=== PATIENT | male | born 1965 | race Native Hawaiian/Other Pacific Islander ===

== ENCOUNTER 2019-02-22 19:34 | Inpatient (IN) | payer OTHER ==
--- NOTE | 2019-02-22 20:50 | Event Note ---
ED Screening Note Date of service: 02/22/19 Time: 20:46 ED Screening Note: This is a 53 y.o. M. that presents to the ER with global headache and left sided jaw pain for 3 days. Patient completed antibiotics prescribed for otitis media of right ear. This initial assessment/diagnostic orders/clinical plan/treatment(s) is/are subject to change based on patients health status, clinical progression and re- assessment by fellow clinical providers in the ED. Further treatment and workup at subsequent clinical providers discretion. Patient/guardian urged not to elope from the ED as their condition may be serious if not clinically assessed and managed. Initial orders include: CT of head
--- NOTE | 2019-02-22 21:42 | Cat Scan Report ---
CT head without contrast HISTORY: migraine. TECHNIQUE: Axial imaging performed from the skull apex through the skull base without the use of con trast. All CT scans at this location are performed using CT dose reduction for ALARA by means of aut omated exposure control. COMPARISON: CT head from 12/23/2012 FINDINGS: Parenchyma: No acute intracranial hemorrhage or parenchymal abnormality. Ventricles: There is mild diffuse brain atrophy with commensurate ventricular enlargement. Soft tissues: Soft tissues including the orbits appear normal. Bones: No acute osseous abnormality. Sinuses: Sinuses and mastoid air cells are clear. IMPRESSION: No acute abnormality. Signer Name: Aris Garcia MD Signed: 02/22/2019 9:38 PM Workstation Name: [id number]
--- NOTE | 2019-02-23 00:59 | Emergency Department Report ---
ED Headache HPI - General Chief Complaint: Headache Stated Complaint: HEADACHE, LEG WEAKNESS Time Seen by Provider: 02/22/19 20:46 Source: patient - History of Present Illness Head Injury Location: global Recent Head Trauma: occasional headaches Associated Symptoms: fatigue, vision changes, weakness (post weakness to the left upper extremity. Left-sided facial weakness, blurred vision and dizziness associated with the episode has been off and on for the last 3 days) Allergies/Adverse Reactions: Allergies No Known Allergies Allergy (Unverified 02/22/19 20:50) ED Review of Systems ROS: Stated complaint: HEADACHE, LEG WEAKNESS Other details as noted in HPI Comment: All other systems reviewed and negative ED Past Medical Hx - Past Medical History Previous Medical History?: Yes Additional medical history: Herpes, - Surgical History Past Surgical History?: Yes Hx Cholecystectomy: Yes - Social History Smoking Status: Never Smoker Substance Use Type: None ED Physical Exam - General Limitations: No Limitations General appearance: alert, in no apparent distress - Head Head exam: Present: atraumatic, normocephalic - Eye Eye exam: Present: normal appearance, PERRL, EOMI Pupils: Present: normal accommodation - ENT ENT exam: Present: normal exam, normal orophraynx, mucous membranes moist, TM's normal bilaterally - Neck Neck exam: Present: normal inspection, full ROM - Respiratory Respiratory exam: Present: normal lung sounds bilaterally. Absent: respiratory distress, wheezes, rales, chest wall tenderness, accessory muscle use - Cardiovascular Cardiovascular Exam: Present: regular rate, normal rhythm. Absent: systolic murmur, diastolic murmur, rubs, gallop - GI/Abdominal GI/Abdominal exam: Present: soft, normal bowel sounds. Absent: distended, tenderness, guarding, hyperactive bowel sounds, hypoactive bowel sounds, organomegaly - Rectal Rectal exam: Present: deferred - Extremities Exam Extremities exam: Present: normal inspection, full ROM, normal capillary refill. Absent: tenderness, pedal edema, calf tenderness - Back Exam Back exam: Present: normal inspection, full ROM. Absent: CVA tenderness (R), CVA tenderness (L) - Neurological Exam Neurological exam: Present: alert, oriented X3, CN II-XII intact - Psychiatric Psychiatric exam: Present: normal affect, normal mood - Skin Skin exam: Present: warm, dry, intact, normal color. Absent: rash ED Course Vital Signs 02/22/19 20:46 Temperature 98.3 F Pulse Rate 69 Respiratory 18 Rate Blood Pressure 112/55 O2 Sat by Pulse 97 Oximetry - Consultations Consultation #1: 02/23/19 01:[address] Hernandez who agrees with the need for admission. She had [id number] with the patient see her note for more details Consultation #2: 02/23/19 03:12 Case discussed with tele-neurology and advised them of the sequence of events. They recommend admission for MRI and advised to start patient on a statin, Plavix, aspirin, Consultation #3: 02/23/19 03:13 Case discussed with hospitalist, Dr. North. She is aware of the conversation with neurology as well. Plan is to admit seen her note for more details ED Medical Decision Making - Lab Data Result diagrams: 02/23/19 01:13 02/23/19 01:13 - Medical Decision Making 53-year-old male with recurring neuro events mimicking TIAs versus stroke asymptomatic at currently stable vitals. Discussed the case with with neurology who has a strong suspicion for stuttering TIAs and recommended starting the patient on Plavix, aspirin, statin, the patient will be admitted to Dr. North for further evaluation and treatment options. Most likely, including an MRI. Critical care attestation.: If time is entered above; I have spent that time in minutes in the direct care of this critically ill patient, excluding procedure time. ED Disposition Clinical Impression: Cephalgia Disposition: OP ADMIT IP TO THIS HOSP Is pt being admited?: No Does the pt Need Aspirin: No Condition: Stable Referrals: LANRE STROUD MD [Primary Care Provider] - 3-5 Days
[2019-02-23 01:43] LABS: Basophils # (Auto) 0.1 K/mm3 (0.0-0.1); Basophils % (Auto) 0.7 % (0.0-1.8); Eosinophils # (Auto) 0.2 K/mm3 (0.0-0.4); Eosinophils % (Auto) 3.4 % (0.0-4.3); Hematocrit 40.1 % (35.5-45.6); Hemoglobin 14.2 gm/dl (11.8-15.2); Lymphocytes # (Auto) 2.3 K/mm3 (1.2-5.4); Lymphocytes % (Auto) 32.2 % (13.4-35.0); Mean Corpuscular HGB Conc 35 % (32-34); Mean Corpuscular Volume 84 fl (84-94); Monocytes # (Auto) 0.3 K/mm3 (0.0-0.8); Monocytes % (Auto) 4.6 % (0.0-7.3); Platelet Count 201 K/mm3 (140-440); Red Blood Count 4.79 M/mm3 (3.65-5.03); Red Cell Distribution Width 14.6 % (13.2-15.2)
[2019-02-23 01:57] LABS: Amphetamine Screen,Urine PRESUMPTIVE NEGATIVE; Benzodiazepines Screen,Urine PRESUMPTIVE NEGATIVE; Cannabinoid Screen,Urine PRESUMPTIVE NEGATIVE; Cocaine Screen,Urine PRESUMPTIVE NEGATIVE; Methadone Screen,Urine PRESUMPTIVE NEGATIVE; Opiate Screen,Urine PRESUMPTIVE NEGATIVE
[2019-02-23 02:09] LABS: INR 1.01 (0.87-1.13)
[2019-02-23 02:10] LABS: Partial Thromboplastin Time 34.3 Sec. (24.2-36.6); Thrombin Time 16.8 Sec. (15.1-19.6)
[2019-02-23 02:27] LABS: Alanine Aminotransferase 108 units/L (7-56); Albumin 4.3 g/dL (3.9-5); BUN/Creatinine Ratio 16; Blood Urea Nitrogen 11 mg/dL (9-20); Calcium 8.9 mg/dL (8.4-10.2); Hemolysis Index 7
[2019-02-23 02:38] LABS: Creatine Kinase MB < 1.0 ng/mL (0.0-4.0)
[2019-02-23] MEDS ORDERED: TYLENOL PO PRN (03:10)
[2019-02-23] MEDS ORDERED: DILAUDID IV PRN (03:10)
[2019-02-23] MEDS ORDERED: ZOFRAN IV PRN (03:10)
[2019-02-23] MEDS ORDERED: SODIUM CHLORIDE FLUSH SYRINGE 10 ML IV PRN (03:10)
--- NOTE | 2019-02-23 04:06 | History and Physical Report ---
<DENIZ SANDOVAL - Last Filed: 02/23/19 04:12> History of Present Illness Date of examination: 02/23/19 Date of admission: 02/23/2019 Chief complaint: Headache, blurred vision, left-sided weakness, slurred speech History of present illness: 53-year-old male with history of herpes (unsure whether its HSV1 or HSV2) who is currently not on any antiviral medication who presents to [facility] ED with complaints of headache, slurred speech, left facial droop, left-sided weakness for the past 3-4 days. Patient states that he has had headaches, slurred speech, left facial droop, and left sided weakness intermittently for the past 6 months. He decided to come into the ED this time because he spoke with someone who advised him that he may be having a stroke and should get medical evaluation. She states that he was told many years ago and does not recall exactly that he has herpes of the liver. He thinks that his headaches are d/t herpes spreading to his brain. 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 denies: smoking, alcohol abuse Family history: no significant family history Medications and Allergies Allergies Allergy/AdvReac Type Severity Reaction Status Date / Time No Known Allergies Allergy Verified 02/23/19 03:38 Active Meds: Active Medications Acetaminophen (Tylenol) 650 mg PO Q4H PRN PRN Reason: Pain MILD(1-3)/Fever >100.5/ELKINS Aspirin (Baby Aspirin) 81 mg PO QDAY RENETTA Clopidogrel Bisulfate (Plavix) 75 mg PO QDAY RENETTA Enoxaparin Sodium (Lovenox) 40 mg SUB-Q QDAY@1000 RENETTA Hydromorphone HCl (Dilaudid) 0.5 mg IV Q3H PRN PRN Reason: Pain , Severe (7-10) Ondansetron HCl (Zofran) 4 mg IV Q6H PRN PRN Reason: Nausea And Vomiting Oxycodone/Acetaminophen (Percocet 5/325) 1 tab PO Q6H PRN PRN Reason: Pain, Moderate (4-6) Sodium Chloride (Sodium Chloride Flush Syringe 10 Ml) 10 ml IV BID RENETTA Sodium Chloride (Sodium Chloride Flush Syringe 10 Ml) 10 ml IV PRN PRN PRN Reason: LINE FLUSH Review of Systems All systems: negative Eyes: bilateral: blurred vision Neurological: weakness (left-sided), headaches, change in speech (slurred) Exam - Physical Exam Narrative exam: Physical exam General appearance: Present: Mild discomfort, alert and oriented 3, well- developed, middle-aged adult male - EENT Eyes: Present: PERRL, EOM intact ENT: hearing intact, normal dentition - Neck Neck: Present: supple, normal ROM - Respiratory Respiratory effort: Non-labored Respiratory: CTA bilaterally - Cardiovascular Heart rate: 55 (bpm) Rhythm: SB Heart Sounds: Present: S1 & S2. Absent: rub, click - Extremities Extremities: no ischemia, pulses intact, - Peripheral Assessment Peripheral Pulses: within normal limits - Abdominal General gastrointestinal: soft, non-tender, normal bowel sounds - Integumentary Integumentary: Present: warm, dry - Musculoskeletal Musculoskeletal: Normal gait -Neurological Neurological: CN II-XII grossly intact - Psychiatric Psychiatric: cooperative - Constitutional Vitals: Temp Pulse Resp BP Pulse Ox 98.3 F 69 18 112/55 97 02/22/19 20:46 02/22/19 20:46 02/22/19 20:46 02/22/19 20:46 02/22/19 20:46 Results - Labs CBC & Chem 7: 02/23/19 01:13 02/23/19 01:13 Labs: Laboratory Last Values WBC 7.1 K/mm3 (4.5-11.0) 02/23/19 01:13 RBC 4.79 M/mm3 (3.65-5.03) 02/23/19 01:13 Hgb 14.2 gm/dl (11.8-15.2) 02/23/19 01:13 Hct 40.1 % (35.5-45.6) 02/23/19 01:13 MCV 84 fl (84-94) 02/23/19 01:13 MCH 30 pg (28-32) 02/23/19 01:13 MCHC 35 % (32-34) H 02/23/19 01:13 RDW 14.6 % (13.2-15.2) 02/23/19 01:13 Plt Count 201 K/mm3 (140-440) 02/23/19 01:13 Lymph % (Auto) 32.2 % (13.4-35.0) 02/23/19 01:13 [place] % (Auto) 4.6 % (0.0-7.3) 02/23/19 01:13 Eos % (Auto) 3.4 % (0.0-4.3) 02/23/19 01:13 Baso % (Auto) 0.7 % (0.0-1.8) 02/23/19 01:13 Lymph # 2.3 K/mm3 (1.2-5.4) 02/23/19 01:13 [place] # 0.3 K/mm3 (0.0-0.8) 02/23/19 01:13 Eos # 0.2 K/mm3 (0.0-0.4) 02/23/19 01:13 Baso # 0.1 K/mm3 (0.0-0.1) 02/23/19 01:13 Seg Neutrophils % 59.1 % (40.0-70.0) 02/23/19 01:13 Seg Neutrophils # 4.2 K/mm3 (1.8-7.7) 02/23/19 01:13 PT 13.0 Sec. (12.2-14.9) 02/23/19 01:13 INR 1.01 (0.87-1.13) 02/23/19 01:13 APTT 34.3 Sec. (24.2-36.6) 02/23/19 01:13 16.8 Sec. (15.1-19.6) 02/23/19 01:13 Sodium 139 mmol/L (137-145) 02/23/19 01:13 Potassium 4.1 mmol/L (3.6-5.0) 02/23/19 01:13 Chloride 100.8 mmol/L (98-107) 02/23/19 01:13 Carbon Dioxide 26 mmol/L (22-30) 02/23/19 01:13 16 mmol/L 02/23/19 01:13 BUN 11 mg/dL (9-20) 02/23/19 01:13 0.7 mg/dL (0.8-1.5) L 02/23/19 01:13 Estimated GFR > 60 ml/min 02/23/19 01:13 16 % 02/23/19 01:13 Glucose 120 mg/dL (75-100) H 02/23/19 01:13 Calcium 8.9 mg/dL (8.4-10.2) 02/23/19 01:13 1.30 mg/dL (0.1-1.2) H 02/23/19 01:13 AST 64 units/L (5-40) H 02/23/19 01:13 ALT 108 units/L (7-56) H 02/23/19 01:13 95 units/L (35-129) 02/23/19 01:13 75 units/L (55-170) 02/23/19 01:13 CK-MB (CK-2) < 1.0 ng/mL (0.0-4.0) 02/23/19 01:13 CK-MB (CK-2) Rel Index 1.3 (0-4) 02/23/19 01:13 < 0.010 ng/mL (0.00-0.029) 02/23/19 01:13 7.3 g/dL (6.3-8.2) 02/23/19 01:13 4.3 g/dL (3.9-5) 02/23/19 01:13 1.4 % 02/23/19 01:13 Presumptive negative 02/23/19 01:24 Presumptive negative 02/23/19 01:24 Ur Barbiturates Screen Presumptive negative 02/23/19 01:24 Ur Phencyclidine Scrn Presumptive negative 02/23/19 01:24 Ur Amphetamines Screen Presumptive negative 02/23/19 01:24 U Benzodiazepines Scrn Presumptive negative 02/23/19 01:24 Presumptive negative 02/23/19 01:24 U Marijuana (THC) Screen Presumptive negative 02/23/19 01:24 Disclamer 02/23/19 01:24 - Imaging and Cardiology Imaging and Cardiology: CT Head: FINDINGS: Parenchyma: No acute intracranial hemorrhage or parenchymal abnormality. Ventricles: There is mild diffuse brain atrophy with commensurate ventricular enlargement. Soft tissues: Soft tissues including the orbits appear normal. Bones: No acute osseous abnormality. Sinuses: Sinuses and mastoid air cells are clear. IMPRESSION: No acute abnormality. US abdominal: Pending Assessment and Plan Assessment and plan: 53-year-old male with history of herpes (unsure whether it HSV1 or HSV2) who is currently not on any antiviral medication who presents to [facility] ED with complaints of intermittent headache, slurred speech, left facial droop, left-sided weakness for the past 3-4 days. Stuttering TIA R/O CVA -CT Head revealed mild diffuse brain atrophy with commensurate ventricular enlargement. -Initiate stroke protocol -Neurochecks per stroke protocol -MRI/ MRA brain pending -Start ASA, and Plavix -Pt has elevated liver enzymes; abdominal ultrasound pending; -Hold off on Statin pending abdominal ultrasound -Lipid panel pending -Neurology consult -PT/OT consult Transaminitis -Elevated liver enzymes -Denies history of EtOH use/abuse -Abdominal ultrasound pending Hx Herpes -Unsure of date of diagnosis -per pt he has Herpes in the Liver with concerns that it may have spread to his brain. MRI/MRA Brain pending -Will hold off on starting pt on acyclovir pending MRI/MRA DVT PPX -Lovenox Advance Directives: No VTE prophylaxis?: Chemical Plan of care discussed with patient/family: Yes <VIANNEY CASON - Last Filed: 02/24/19 06:30> History of Present Illness Date of admission: 02/23/19 03:10 Medications and Allergies Active Meds: Active Medications Acetaminophen (Tylenol) 650 mg PO Q4H PRN PRN Reason: Pain MILD(1-3)/Fever >100.5/ELKINS Aspirin (Baby Aspirin) 81 mg PO QDAY RENETTA Clopidogrel Bisulfate (Plavix) 75 mg PO QDAY RENETTA Enoxaparin Sodium (Lovenox) 40 mg SUB-Q QDAY@1000 RENETTA Hydromorphone HCl (Dilaudid) 0.5 mg IV Q3H PRN PRN Reason: Pain , Severe (7-10) Ondansetron HCl (Zofran) 4 mg IV Q6H PRN PRN Reason: Nausea And Vomiting Oxycodone/Acetaminophen (Percocet 5/325) 1 tab PO Q6H PRN PRN Reason: Pain, Moderate (4-6) Sodium Chloride (Sodium Chloride Flush Syringe 10 Ml) 10 ml IV BID RENETTA Sodium Chloride (Sodium Chloride Flush Syringe 10 Ml) 10 ml IV PRN PRN PRN Reason: LINE FLUSH Exam - Constitutional Vitals: Temp Pulse Resp BP Pulse Ox 98.7 F 60 15 109/57 97 02/23/19 04:10 02/23/19 04:10 02/23/19 04:10 02/23/19 04:10 02/23/19 04:10 Results - Labs CBC & Chem 7: 02/23/19 01:13 02/23/19 01:13 Labs: Laboratory Last Values WBC 7.1 K/mm3 (4.5-11.0) 02/23/19 01:13 RBC 4.79 M/mm3 (3.65-5.03) 02/23/19 01:13 Hgb 14.2 gm/dl (11.8-15.2) 02/23/19 01:13 Hct 40.1 % (35.5-45.6) 02/23/19 01:13 MCV 84 fl (84-94) 02/23/19 01:13 MCH 30 pg (28-32) 02/23/19 01:13 MCHC 35 % (32-34) H 02/23/19 01:13 RDW 14.6 % (13.2-15.2) 02/23/19 01:13 Plt Count 201 K/mm3 (140-440) 02/23/19 01:13 Lymph % (Auto) 32.2 % (13.4-35.0) 02/23/19 01:13 Cabell % (Auto) 4.6 % (0.0-7.3) 02/23/19 01:13 Eos % (Auto) 3.4 % (0.0-4.3) 02/23/19 01:13 Baso % (Auto) 0.7 % (0.0-1.8) 02/23/19 01:13 Lymph # 2.3 K/mm3 (1.2-5.4) 02/23/19 01:13 Cabell # 0.3 K/mm3 (0.0-0.8) 02/23/19 01:13 Eos # 0.2 K/mm3 (0.0-0.4) 02/23/19 01:13 Baso # 0.1 K/mm3 (0.0-0.1) 02/23/19 01:13 Seg Neutrophils % 59.1 % (40.0-70.0) 02/23/19 01:13 Seg Neutrophils # 4.2 K/mm3 (1.8-7.7) 02/23/19 01:13 PT 13.0 Sec. (12.2-14.9) 02/23/19 01:13 INR 1.01 (0.87-1.13) 02/23/19 01:13 APTT 34.3 Sec. (24.2-36.6) 02/23/19 01:13 16.8 Sec. (15.1-19.6) 02/23/19 01:13 Sodium 139 mmol/L (137-145) 02/23/19 01:13 Potassium 4.1 mmol/L (3.6-5.0) 02/23/19 01:13 Chloride 100.8 mmol/L (98-107) 02/23/19 01:13 Carbon Dioxide 26 mmol/L (22-30) 02/23/19 01:13 16 mmol/L 02/23/19 01:13 BUN 11 mg/dL (9-20) 02/23/19 01:13 0.7 mg/dL (0.8-1.5) L 02/23/19 01:13 Estimated GFR > 60 ml/min 02/23/19 01:13 16 % 02/23/19 01:13 Glucose 120 mg/dL (75-100) H 02/23/19 01:13 Calcium 8.9 mg/dL (8.4-10.2) 02/23/19 01:13 1.30 mg/dL (0.1-1.2) H 02/23/19 01:13 AST 64 units/L (5-40) H 02/23/19 01:13 ALT 108 units/L (7-56) H 02/23/19 01:13 95 units/L (35-129) 02/23/19 01:13 75 units/L (55-170) 02/23/19 01:13 CK-MB (CK-2) < 1.0 ng/mL (0.0-4.0) 02/23/19 01:13 CK-MB (CK-2) Rel Index 1.3 (0-4) 02/23/19 01:13 < 0.010 ng/mL (0.00-0.029) 02/23/19 01:13 7.3 g/dL (6.3-8.2) 02/23/19 01:13 4.3 g/dL (3.9-5) 02/23/19 01:13 1.4 % 02/23/19 01:13 Presumptive negative 02/23/19 01:24 Presumptive negative 02/23/19 01:24 Ur Barbiturates Screen Presumptive negative 02/23/19 01:24 Ur Phencyclidine Scrn Presumptive negative 02/23/19 01:24 Ur Amphetamines Screen Presumptive negative 02/23/19 01:24 U Benzodiazepines Scrn Presumptive negative 02/23/19 01:24 Presumptive negative 02/23/19 01:24 U Marijuana (THC) Screen Presumptive negative 02/23/19 01:24 Disclamer 02/23/19 01:24 Assessment and Plan Assessment and plan: 53 year old man with history of herpes comes to ER with several complaints of left frontal headache, left jaw pain, left hand weakness and right leg numbness for 3 days. PE is significant for LUE weakness 4/5. Agree with plan as discussed aboved, add echo
--- NOTE | 2019-02-23 04:26 | Ultrasound Report ---
ULTRASOUND ABDOMEN, LIMITED (RIGHT UPPER QUADRANT) INDICATION: elevated liver enzymes. COMPARISON: None available. FINDINGS: Pancreas: Visualized portion shows no significant abnormality. Liver: There is increased echogenicity in the liver which could represent fatty infiltration or hepat ocellular disease. Gallbladder: Cholecystectomy Bile ducts: Normal. Common Bile Duct measures 5 mm. Free fluid: None. Additional Findings: None. IMPRESSION: 1. There is increased echogenicity in liver characteristic of fatty infiltration or hepatocellular di sease. Signer Name: Beau Wiley MD Signed: 02/23/2019 4:21 AM Workstation Name: [id number]
[2019-02-23] MEDS ORDERED: LOVENOX SUB-Q SCH (10:00)
--- NOTE | 2019-02-23 10:20 | Progress Note ---
Subjective Date of service: 02/23/19 Interval history: patient seen and full note dictated note is made the CT of brain and sinuses are normal there is hx of prtoblems with hepatic disorder and now the ALT/AST levels are elevated and the bilirubin increased neuro exam is unremarkable BP is OK could have been TIA more relevant is the liver problem Objective - Vital Sign Vital Signs - 12hr 02/23/19 02/23/19 02/23/19 04:10 05:36 07:55 Temperature 98.7 F 97.4 F L 98.2 F Pulse Rate 60 54 L Respiratory 15 20 18 Rate Blood Pressure 97/58 83/30 Blood Pressure 109/57 [Right] O2 Sat by Pulse 97 96 Oximetry 02/23/19 07:58 Temperature Pulse Rate Respiratory 18 Rate Blood Pressure 99/59 Blood Pressure [Right] O2 Sat by Pulse Oximetry - Laboratory Findings CBC and BMP: 02/23/19 01:13 02/23/19 01:13 Abnormal Lab Findings: Abnormal Labs 02/23/19 02/23/19 01:13 01:13 MCHC 35 H Creatinine 0.7 L Glucose 120 H Total Bilirubin 1.30 H AST 64 H ALT 108 H
[2019-02-23] MEDS: LOVENOX SUB-Q SCH (11:14)
[2019-02-23] MEDS: PLAVIX PO SCH (11:14)
[2019-02-23] MEDS: BABY ASPIRIN PO SCH (11:14)
[2019-02-23] MEDS: SODIUM CHLORIDE FLUSH SYRINGE 10 ML IV SCH ×2 (11:15→21:56)
--- NOTE | 2019-02-23 11:29 | Event Note ---
Date: 02/23/19 53-year-old male patient was admitted through emergency room with left facial droop and left-sided weakness, CT head without contrast did not show any acute abnormality. Neuro workup including MRI, MRA are in progress Neurology evaluation noted and appreciated, Agree with the current management Plan of care is reviewed with the patient, family members at the bedside and his nurse
[2019-02-23] MEDS ORDERED: NACL 0.9% 500 ML 500 ML IV ONE (12:20)
--- NOTE | 2019-02-23 13:55 | Consultation ---
HISTORY OF PRESENT ILLNESS: This is a 53-year-old male who presents to [facility] as emergency admission on 02/23/2019. On presentation to the Emergency Room, he had a number of complaints. He had a syncopal episode several days prior. Briefly, he was unconscious for about 5 minutes. At that point, he bumped his head against his door. He does not think he had a serious head injury. He was dizzy, had blurred vision prior to that. After that, he began to develop very profound headaches on the left side. Headaches were severe, pulsatile. He has had a history about 3 years ago of having an ear infection on the right side. The patient subsequently was thought to have had an ear infection, but then after that then he was seen by another doctor who thought that he had hepatitis and there was a description that the patient thought either he had hepatitis or another type of infection, although he could not be very sure about what the diagnosis was. In the interval, he has felt fairly well, been active, but has had intermittent problems with dizziness and a feeling of generalized weakness. On presentation at this point, his AST is 64, his ALT is 108, his total bilirubin was 1.30, glucose was 230. The patient has drug screens, which were entirely negative. He now has a severe headache. Other laboratories are pertinent show about modestly elevated glucose of 120. I reviewed, however, his CT scan of the head and I do not see any evidence of any mastoiditis and the external auditory meatus is normal bilaterally. The miles and white matter of the brain is normal. I do not see any evidence to suggest MS. Ventricular system is normal in size and shape. Subdural spaces are free of any abnormalities. Sinuses that are visualized have a quite normal appearance, well opacified and I see no evidence that he has a recurrent mastoiditis at this point. PHYSICAL EXAMINATION: VITAL SIGNS: On further examination, his blood pressure is slightly low at 99/59, his temperature is 98.2 degrees, blood pressure is 109/57. The patient's PaO2 on room air is 97%. GENERAL: He is fully alert, responsive. NECK: Supple. NEUROLOGIC: Speech is clear. No drift to the extremities is present. Motor tone is symmetrical. Ocular movements are full. Hearing is intact. Face is symmetrical on motor and sensory testing. I did palpate the area of the forehead on the left and right side where he reportedly made contact with the door facing. I do not palpate any bruising. There is no contusion, abrasions or lacerations noted in the area. The remainder of his examination is rather benign. IMPRESSION: 1. Acute onset of dizziness with perhaps a presyncopal episode. 2. History of hepatic problems. Now, he does have an elevated total bilirubin, AST, ALT. This is being currently worked up. PLAN: Would recommend getting an EEG as this could have been a seizure. Would recommend MRI scan of brain. JOB# [id number] JARRET/SANDRA
[2019-02-24 06:30] LABS: Basophils # (Auto) 0.1 K/mm3 (0.0-0.1); Basophils % (Auto) 0.9 % (0.0-1.8); Eosinophils # (Auto) 0.2 K/mm3 (0.0-0.4); Eosinophils % (Auto) 4.3 % (0.0-4.3); Hematocrit 39.5 % (35.5-45.6); Hemoglobin 14.1 gm/dl (11.8-15.2); Lymphocytes # (Auto) 2.2 K/mm3 (1.2-5.4); Lymphocytes % (Auto) 38.3 % (13.4-35.0); Mean Corpuscular HGB Conc 36 % (32-34); Mean Corpuscular Volume 83 fl (84-94); Monocytes # (Auto) 0.3 K/mm3 (0.0-0.8); Monocytes % (Auto) 5.8 % (0.0-7.3); Platelet Count 186 K/mm3 (140-440); Red Blood Count 4.74 M/mm3 (3.65-5.03); Red Cell Distribution Width 14.6 % (13.2-15.2)
[2019-02-24 06:50] LABS: BUN/Creatinine Ratio 14; Blood Urea Nitrogen 10 mg/dL (9-20); Calcium 8.6 mg/dL (8.4-10.2); Chol/HDL Ratio 4.64 %; HDL Cholesterol 28 mg/dL (40-59); Hemolysis Index 24; LDL Cholesterol,Direct 102 mg/dL (50-130)
[2019-02-24] MEDS ORDERED: ATIVAN IV PRN (10:00)
[2019-02-24] MEDS: BABY ASPIRIN PO SCH (12:42)
[2019-02-24] MEDS: PLAVIX PO SCH (12:42)
[2019-02-24] MEDS: LOVENOX SUB-Q SCH (12:42)
[2019-02-24] MEDS: PERCOCET 5/325 PO PRN ×2 (12:42→19:29)
[2019-02-24] MEDS: SODIUM CHLORIDE FLUSH SYRINGE 10 ML IV SCH ×2 (12:47→22:10)
--- NOTE | 2019-02-24 18:08 | Progress Note ---
Assessment and Plan Assessment and plan: 53-year-old male with history of herpes (unsure whether it HSV1 or HSV2) who is currently not on any antiviral medication who presents to [facility] ED with complaints of intermittent headache, slurred speech, left facial droop, left-sided weakness for the past 3-4 days. --Slurred speech/ TIA/CVA: R/O CVA: not a candidate for TPA Speech clear, no weakness noted CT Head :mild diffuse brain atrophy with commensurate ventricular enlargement. On stroke protocol, f/u MRI/ MRA brain [reports pending] ASA, and Plavix, no statin due to elevated LFTs Neurology evaluation noted, PT/OT supportive care, PT evaluated,no needs --Transaminitis: Elevated liver enzymes Denies history of EtOH use/abuse Abdominal US: fatty infiltration,hepatocellular dis Out pt GI evaluation upon discharge --Hx Herpes Unsure of date of diagnosis: patient will f/u with ID/Health dept upon discharge ID consult if needed pending neuro w/u --DVT PPX -Lovenox Disposition; follow MRI/MRA[reports not available till 7 PM today] rest of the neuro workup DC home tomorrow if negative History Interval history: Patient seen and examined medical records reviewed Patient feels slightly better weakness significantly improved Speech clear, Neuro workup is in progress Vital signs noted Hospitalist Physical - Constitutional Vitals: Temp Pulse Resp BP Pulse Ox 97.8 F 62 18 107/64 95 02/24/19 08:21 02/24/19 08:21 02/24/19 08:21 02/24/19 08:21 02/24/19 12:47 General appearance: Present: no acute distress, well-nourished, other (speech clear) - EENT Eyes: Present: PERRL, EOM intact - Neck Neck: Present: supple, normal ROM - Respiratory Respiratory effort: normal Respiratory: bilateral: diminished, negative: rales, rhonchi, wheezing - Cardiovascular Rhythm: regular Heart Sounds: Present: S1 & S2 - Extremities Extremities: no ischemia, No edema - Abdominal General gastrointestinal: soft, non-tender, non-distended, normal bowel sounds - Integumentary Integumentary: Present: clear, warm - Psychiatric Psychiatric: appropriate mood/affect, cooperative - Neurologic Neurologic: CNII-XII intact, moves all extremities Results - Labs CBC & Chem 7: 02/24/19 05:47 02/24/19 05:47 Labs: Laboratory Last Values WBC 5.6 K/mm3 (4.5-11.0) 02/24/19 05:47 RBC 4.74 M/mm3 (3.65-5.03) 02/24/19 05:47 Hgb 14.1 gm/dl (11.8-15.2) 02/24/19 05:47 Hct 39.5 % (35.5-45.6) 02/24/19 05:47 MCV 83 fl (84-94) L 02/24/19 05:47 MCH 30 pg (28-32) 02/24/19 05:47 MCHC 36 % (32-34) H 02/24/19 05:47 RDW 14.6 % (13.2-15.2) 02/24/19 05:47 Plt Count 186 K/mm3 (140-440) 02/24/19 05:47 Lymph % (Auto) 38.3 % (13.4-35.0) H 02/24/19 05:47 [place] % (Auto) 5.8 % (0.0-7.3) 02/24/19 05:47 Eos % (Auto) 4.3 % (0.0-4.3) 02/24/19 05:47 Baso % (Auto) 0.9 % (0.0-1.8) 02/24/19 05:47 Lymph # 2.2 K/mm3 (1.2-5.4) 02/24/19 05:47 [place] # 0.3 K/mm3 (0.0-0.8) 02/24/19 05:47 Eos # 0.2 K/mm3 (0.0-0.4) 02/24/19 05:47 Baso # 0.1 K/mm3 (0.0-0.1) 02/24/19 05:47 Seg Neutrophils % 50.7 % (40.0-70.0) 02/24/19 05:47 Seg Neutrophils # 2.9 K/mm3 (1.8-7.7) 02/24/19 05:47 PT 13.0 Sec. (12.2-14.9) 02/23/19 01:13 INR 1.01 (0.87-1.13) 02/23/19 01:13 APTT 34.3 Sec. (24.2-36.6) 02/23/19 01:13 16.8 Sec. (15.1-19.6) 02/23/19 01:13 Sodium 140 mmol/L (137-145) 02/24/19 05:47 Potassium 3.8 mmol/L (3.6-5.0) 02/24/19 05:47 Chloride 106.0 mmol/L (98-107) 02/24/19 05:47 Carbon Dioxide 20 mmol/L (22-30) L 02/24/19 05:47 18 mmol/L 02/24/19 05:47 BUN 10 mg/dL (9-20) 02/24/19 05:47 0.7 mg/dL (0.8-1.5) L 02/24/19 05:47 Estimated GFR > 60 ml/min 02/24/19 05:47 14 % 02/24/19 05:47 Glucose 134 mg/dL (75-100) H 02/24/19 05:47 POC Glucose 128 (70-105) H 02/24/19 07:37 Calcium 8.6 mg/dL (8.4-10.2) 02/24/19 05:47 1.30 mg/dL (0.1-1.2) H 02/23/19 01:13 AST 64 units/L (5-40) H 02/23/19 01:13 ALT 108 units/L (7-56) H 02/23/19 01:13 95 units/L (35-129) 02/23/19 01:13 75 units/L (55-170) 02/23/19 01:13 CK-MB (CK-2) < 1.0 ng/mL (0.0-4.0) 02/23/19 01:13 CK-MB (CK-2) Rel Index 1.3 (0-4) 02/23/19 01:13 < 0.010 ng/mL (0.00-0.029) 02/23/19 01:13 7.3 g/dL (6.3-8.2) 02/23/19 01:13 4.3 g/dL (3.9-5) 02/23/19 01:13 1.4 % 02/23/19 01:13 Triglycerides 129 mg/dL (2-149) 02/24/19 05:47 Cholesterol 130 mg/dL (50-199) 02/24/19 05:47 102 mg/dL (50-130) 02/24/19 05:47 28 mg/dL (40-59) L 02/24/19 05:47 4.64 % 02/24/19 05:47 Presumptive negative 02/23/19 01:24 Presumptive negative 02/23/19 01:24 Ur Barbiturates Screen Presumptive negative 02/23/19 01:24 Ur Phencyclidine Scrn Presumptive negative 02/23/19 01:24 Ur Amphetamines Screen Presumptive negative 02/23/19 01:24 U Benzodiazepines Scrn Presumptive negative 02/23/19 01:24 Presumptive negative 02/23/19 01:24 U Marijuana (THC) Screen Presumptive negative 02/23/19 01:24 Disclamer 02/23/19 01:24 Active Medications - Current Medications Current Medications: Generic Name Dose Route Start Last Admin Trade Name Freq PRN Reason Stop Dose Admin Acetaminophen 650 mg 02/23/19 03:10 Tylenol PO Q4H PRN Pain MILD(1-3)/Fever >100.5/ELKINS Aspirin 81 mg 02/23/19 10:00 02/24/19 12:42 Baby Aspirin PO 81 mg QDAY RENETTA Administration Clopidogrel Bisulfate 75 mg 02/23/19 10:00 02/24/19 12:42 Plavix PO 75 mg QDAY RENETTA Administration Enoxaparin Sodium 40 mg 02/23/19 10:00 02/24/19 12:42 Lovenox SUB-Q 40 mg QDAY@1000 RENETTA Administration Hydromorphone HCl 0.5 mg 02/23/19 03:10 Dilaudid IV Q3H PRN Pain , Severe (7-10) Lorazepam 2 mg 02/24/19 10:00 Ativan IV ONCE PRN Anxiety Ondansetron HCl 4 mg 02/23/19 03:10 Zofran IV Q6H PRN Nausea And Vomiting Oxycodone/Acetaminophen 1 tab 02/23/19 03:10 02/24/19 12:42 Percocet 5/325 PO 1 tab Q6H PRN Administration Pain, Moderate (4-6) Sodium Chloride 10 ml 02/23/19 10:00 02/24/19 12:47 Sodium Chloride Flush Syringe 10 Ml IV 10 ml BID RENETTA Administration Sodium Chloride 10 ml 02/23/19 03:10 Sodium Chloride Flush Syringe 10 Ml IV PRN PRN LINE FLUSH
[2019-02-24] MEDS ORDERED: IBUPROFEN PO PRN (21:48)
[2019-02-25 07:03] LABS: Albumin 3.9 g/dL (3.9-5); Bilirubin,Direct 0.2 mg/dL (0-0.2)
--- NOTE | 2019-02-25 07:46 | Magnetic Resonance Report ---
MRI BRAIN WITHOUT CONTRAST INDICATION / CLINICAL INFORMATION: seizure. Left facial numbness and slurred speech. History of migraine headaches TECHNIQUE: Multisequence, multiplanar images were obtained. COMPARISON: CT head without contrast dated 02/22/2019 FINDINGS: CEREBRAL and CEREBELLAR HEMISPHERES: The brain parenchyma and its miles-white interface are normal sig nal on all sequences. No evidence of mass or mass effect. No midline shift. No acute hemorrhage. N o diffusion restriction to suggest acute infarct. No extra-axial fluid collection. VENTRICLES: Normal in size and configuration for age. VISUALIZED ORBITS: No significant abnormality. VISUALIZED PARANASAL SINUSES: The right mastoid air cells are partially opacified with fluid. The lef t mastoid air cells are well-aerated. Minimal mucosal thickening is identified in the ethmoid sinuses and right maxillary sinus. ADDITIONAL FINDINGS: None. IMPRESSION: Normal MRI of the brain for age. Mild right mastoid air cell disease. Signer Name: Arsenio Roman Jr, MD Signed: 02/25/2019 7:42 AM Workstation Name: [id number]
--- NOTE | 2019-02-25 07:48 | Magnetic Resonance Report ---
MRA HEAD WITHOUT CONTRAST HISTORY: Stroke, seizure. Left facial numbness and slurred speech COMPARISON: None. TECHNIQUE: Routine MRA of the head is performed. 3-D/MIP reformats postprocessed. CONTRAST: None. FINDINGS: Intracranial vertebral arteries: No significant abnormality. Basilar artery: No significant abnormality. Posterior cerebral arteries: No significant abnormality. Intracranial internal carotid arteries: No significant abnormality. Anterior cerebral arteries: No significant abnormality. Middle cerebral arteries: No significant abnormality. Additional findings: None. IMPRESSION: Normal MRA of the brain. Signer Name: Arsenio Roman Jr, MD Signed: 02/25/2019 7:44 AM Workstation Name: [id number]
[2019-02-25 09:03] VITALS: BP 98/51
[2019-02-25] MEDS: PLAVIX PO SCH (10:03)
[2019-02-25] MEDS: BABY ASPIRIN PO SCH (10:04)
[2019-02-25] MEDS: LOVENOX SUB-Q SCH (10:04)
[2019-02-25] MEDS: SODIUM CHLORIDE FLUSH SYRINGE 10 ML IV SCH (10:04)
--- NOTE | 2019-02-25 12:38 | Progress Note ---
Subjective Date of service: 02/25/19 Interval history: MRI report deatils mild mastoid disease this explains dizzy feeeling the MRI and MRA are normal OK with me to go home with medical therapy Thanks Objective - Vital Sign Vital Signs - 12hr 02/25/19 02/25/19 02/25/19 03:00 04:12 04:36 Temperature 97.9 F 97.9 F Pulse Rate 60 61 67 Respiratory 16 16 Rate Blood Pressure 85/33 Blood Pressure 110/58 [Right] O2 Sat by Pulse 94 95 Oximetry 02/25/19 02/25/19 02/25/19 08:06 09:42 10:00 Temperature 98.2 F Pulse Rate 66 Respiratory 18 15 Rate Blood Pressure 98/51 Blood Pressure [Right] O2 Sat by Pulse 91 98 Oximetry - Laboratory Findings CBC and BMP: 02/24/19 05:47 02/24/19 05:47 Abnormal Lab Findings: Abnormal Labs 02/23/19 02/23/19 02/24/19 01:13 01:13 05:47 MCV 83 L MCHC 35 H 36 H Lymph % (Auto) 38.3 H Carbon Dioxide Creatinine 0.7 L Glucose 120 H POC Glucose Total Bilirubin 1.30 H AST 64 H ALT 108 H HDL Cholesterol 02/24/19 02/24/19 02/24/19 05:47 05:59 07:37 MCV MCHC Lymph % (Auto) Carbon Dioxide 20 L Creatinine 0.7 L Glucose 134 H POC Glucose 131 H 128 H Total Bilirubin AST ALT HDL Cholesterol 28 L 02/25/19 06:23 MCV MCHC Lymph % (Auto) Carbon Dioxide Creatinine Glucose POC Glucose Total Bilirubin AST 47 H ALT 106 H HDL Cholesterol
--- NOTE | 2019-02-25 13:27 | Discharge Summary ---
Providers - Providers Date of Admission: 02/23/19 03:10 Date of discharge: 02/25/19 Attending physician: MAIK SALCEDO 02/23/19 03:45 Consult to Physician [CONS] Routine Comment: Consulting Provider: JULIAN MARCIAL Physician Instructions: Reason For Exam: ?? Stuttering TIA, headaches, left-sided weakness Physical Therapy Evaluation and Treat [CONS] Routine Comment: Reason For Exam: neuro deficits 02/23/19 03:47 Occupational Therapy Evaluate and Treat [CONS] Routine Comment: Reason For Exam: neuro deficits [facility] Hospital[facility] Condition: Stable Hospital course: 53-year-old male with history of herpes (unsure whether it HSV1 or HSV2) who is currently not on any antiviral medication who presents to [facility] ED with complaints of intermittent headache, slurred speech, left facial droop, left-sided weakness for the past 3-4 days. Discharge diagnosis and Mx: --Slurred speech/ TIA/CVA: R/O CVA: not a candidate for TPA Speech clear, no weakness noted CT Head :mild diffuse brain atrophy with commensurate ventricular enlargement. On stroke protocol, f/u MRI/ MRA brain - negative ASA, and Plavix, no statin due to elevated LFTs Neurology evaluation noted, PT/OT supportive care, PT evaluated,no needs --Transaminitis: Elevated liver enzymes Denies history of EtOH use/abuse Abdominal US: fatty infiltration,hepatocellular disease Out pt GI evaluation upon discharge --Hx Herpes Unsure of date of diagnosis: patient will f/u with ID/Health dept upon discharge --DVT PPX -Lovenox Disposition; home Hospitalist Physical General appearance: Present: no acute distress, well-nourished, other (speech clear) - EENT Eyes: Present: PERRL, EOM intact - Neck Neck: Present: supple, normal ROM - Respiratory Respiratory effort: normal Respiratory: bilateral: diminished, negative: rales, rhonchi, wheezing - Cardiovascular Rhythm: regular Heart Sounds: Present: S1 & S2 - Extremities Extremities: no ischemia, No edema - Abdominal General gastrointestinal: soft, non-tender, non-distended, normal bowel sounds - Integumentary Integumentary: Present: clear, warm - Psychiatric Psychiatric: appropriate mood/affect, cooperative - Neurologic Neurologic: CNII-XII intact, moves all extremities Disposition: TO HOME OR SELFCARE Time spent for discharge: 34 minutes Core Measure Documentation - Palliative Care Palliative Care/ Comfort Measures: Not Applicable - Core Measures Any of the following diagnoses?: none Exam - Constitutional Vitals: Temp Pulse Resp BP Pulse Ox 98.2 F 66 15 98/51 98 02/25/19 08:06 02/25/19 08:06 02/25/19 09:42 02/25/19 08:06 02/25/19 10:00 Plan Activity: advance as tolerated Weight Bearing Status: Weight Bear as Tolerated Diet: low fat, low salt Follow up with: NAD[facility]OUDCOUNT INCLUDES THE [facility] MD ABILIO [Primary Care Provider] - 3-5 Days JESENIA PADILLA MD [Staff Physician] - 7 Days Prescriptions: Aspirin [Aspirin BABY CHEW TAB] 81 mg PO DAILY #30 tab.chew Azithromycin [Zithromax Z-SHAUN] 250 mg PO DAILY #5 tab
== END 2019-02-25 18:27 | disposition home or self-care (01) | DRG 69 ==
LOC: ED 19:34 → 4A 02-23 03:10
PROVIDERS: ADMIT Internal Medicine; ATTEND Internal Medicine
DX: G45.9 Transient cerebral ischemic attack, unspecified (principal); R74.0 Nonspecific elevation of levels of transaminase and lactic acid dehydrogenase [LDH]; Z90.49 Acquired absence of other specified parts of digestive tract
CPT/HCPCS: 36415; 70450; 70544; 70551; 76705; 80048; 80053; 80061; 80076; 80307; 82550; 82553; 82962; 84484; 85025; 85610; 85670; 85730; 93005; 93010; 93306; G0378; J1650

== ENCOUNTER 2020-03-17 14:47 | Emergency (ER) | payer SELFPAY ==
--- NOTE | 2020-03-17 16:02 | Emergency Department Report ---
Blank Doc - Documentation Documentation: 54-year-old male that presents with left sided weakness w/ facial drooping x3 days. Exa: left facial drooping and left sided weakness. This initial assessment/diagnostic orders/clinical plan/treatment(s) is/are subject to change based on patient's health status, clinical progression and re- assessment by fellow clinical providers in the ED. Further treatment and workup at subsequent clinical providers discretion. Patient/guardians urged not to elope from the ED as their condition may be serious if not clinically assessed and managed. Initial orders include: 1- Patient sent to MAIN ED for further evaluation and treatment 2- stroke protocol initiated
--- NOTE | 2020-03-17 17:00 | Cat Scan Report ---
CT head/brain wo con INDICATION: Stroke symptoms. TECHNIQUE: Routine CT head without contrast. All CT scans at this location are performed using CT dos e reduction for [place] by means of automated exposure control. COMPARISON: Brain MRI on 02/24/2019. FINDINGS: BRAIN / INTRACRANIAL CONTENTS: No acute hemorrhage, mass effect, midline shift, or hydrocephalus. No appreciable acute large territorial or lacunar infarct. No chronic infarct or focal atrophy. Normal b rain volume and ventricular/sulcal size for age. ORBITS: No significant abnormality of visualized orbits. SINUSES / MASTOIDS: No significant abnormality of visualized sinuses and mastoid air cells. ADDITIONAL FINDINGS: None. IMPRESSION: 1. No acute intracranial abnormality. Signer Name: Danny Cruz MD Signed: 03/17/2020 4:55 PM Workstation Name: [id number]
[2020-03-17 17:08] LABS: Basophils # (Auto) 0.1 K/mm3 (0.0-0.1); Eosinophils # (Auto) 0.2 K/mm3 (0.0-0.4); Eosinophils % (Auto) 2.3 % (0.0-4.3); Lymphocytes # (Auto) 1.5 K/mm3 (1.2-5.4); Mean Corpuscular HGB Conc 36 % (32-34); Mean Corpuscular Volume 84 fl (84-94); Monocytes # (Auto) 0.4 K/mm3 (0.0-0.8); Monocytes % (Auto) 5.4 % (0.0-7.3); Red Blood Count 5.26 M/mm3 (3.65-5.03); Red Cell Distribution Width 14.3 % (13.2-15.2)
[2020-03-17 17:09] LABS: Hematocrit 44.3 % (35.5-45.6); Hemoglobin 15.8 gm/dl (11.8-15.2); Platelet Count 176 K/mm3 (140-440)
[2020-03-17 17:14] LABS: Creatine Kinase MB 1.4 ng/mL (0.0-4.0)
[2020-03-17 17:15] LABS: Alanine Aminotransferase 67 units/L (7-56); Albumin 4.6 g/dL (3.9-5); Blood Urea Nitrogen 11 mg/dL (9-20); Calcium 9.5 mg/dL (8.4-10.2); Hemolysis Index 18
[2020-03-17 17:17] LABS: BUN/Creatinine Ratio 22
[2020-03-17 17:25] LABS: INR 0.97 (0.87-1.13)
[2020-03-17 17:26] LABS: Partial Thromboplastin Time 29.4 Sec. (24.2-36.6); Thrombin Time 14.1 Sec. (15.1-19.6)
--- NOTE | 2020-03-17 22:38 | Emergency Department Report ---
ED General Adult HPI - General Chief complaint: Dizziness Stated complaint: HEADACHE Time Seen by Provider: 03/17/20 16:00 Source: patient Mode of arrival: Ambulatory Limitations: No Limitations - History of Present Illness Initial comments: Patient presents to the emergency department with a chief complaint of left- sided facial pain that he describes as a pinching sensation. Patient also states that he had a slight headache over his sinuses just above his eyes. Patient states the headache is resolved but he still has a sensation on the left side of his face. Patient denies any facial numbness or any facial droop. Patient chest pain, shortness breath, headache. -: Sudden Location: face Radiation: non-radiation Severity scale (0 -10): 4 Consistency: constant Improves with: none Worsens with: none Associated Symptoms: denies other symptoms Treatments Prior to Arrival: none - Related Data Previous Rx's Medication Instructions Recorded Last Taken Type Aspirin [Aspirin BABY CHEW TAB] 81 mg PO DAILY #30 tab.chew 02/25/19 Unknown Rx Azithromycin [Zithromax Z-SHAUN] 250 mg PO DAILY #5 tab 02/25/19 Unknown Rx Acetaminophen/Codeine [Tylenol 1 tab PO Q6H PRN #15 tab 03/17/20 Unknown Rx /Codeine # 3 tab] Allergies Allergy/AdvReac Type Severity Reaction Status Date / Time No Known Allergies Allergy Verified 02/23/19 03:38 ED Review of Systems ROS: Stated complaint: HEADACHE Other details as noted in HPI Constitutional: denies: chills, fever Eyes: denies: eye pain, eye discharge, vision change ENT: denies: ear pain, throat pain Respiratory: denies: cough, shortness of breath, wheezing Cardiovascular: denies: chest pain, palpitations Endocrine: no symptoms reported Gastrointestinal: denies: abdominal pain, nausea, diarrhea Genitourinary: denies: urgency, dysuria Musculoskeletal: denies: back pain, joint swelling, arthralgia Skin: denies: rash, lesions Neurological: denies: headache, weakness, paresthesias Psychiatric: denies: anxiety, depression Hematological/Lymphatic: denies: easy bleeding, easy bruising ED Past Medical Hx - Past Medical History Previous Medical History?: Yes Hx CVA: Yes Additional medical history: Herpes, - Surgical History Past Surgical History?: Yes Hx Cholecystectomy: Yes - Social History Smoking Status: Never Smoker - Medications Home Medications: Home Medications Medication Instructions Recorded Confirmed Last Taken Type Aspirin [Aspirin BABY CHEW TAB] 81 mg PO DAILY #30 tab.chew 02/25/19 Unknown Rx Azithromycin [Zithromax Z-SHAUN] 250 mg PO DAILY #5 tab 02/25/19 Unknown Rx Acetaminophen/Codeine [Tylenol 1 tab PO Q6H PRN #15 tab 03/17/20 Unknown Rx /Codeine # 3 tab] ED Physical Exam - General Limitations: No Limitations General appearance: alert, in no apparent distress - Head Head exam: Present: atraumatic, normocephalic - Eye Eye exam: Present: normal appearance, PERRL - ENT ENT exam: Present: mucous membranes moist - Neck Neck exam: Present: normal inspection - Respiratory Respiratory exam: Present: normal lung sounds bilaterally. Absent: respiratory distress - Cardiovascular Cardiovascular Exam: Present: regular rate, normal rhythm. Absent: systolic murmur, diastolic murmur, rubs, gallop - GI/Abdominal GI/Abdominal exam: Present: soft, normal bowel sounds. Absent: distended, tenderness - Rectal Rectal exam: Present: deferred - Extremities Exam Extremities exam: Present: normal inspection - Back Exam Back exam: Present: normal inspection - Neurological Exam Neurological exam: Present: alert, oriented X3, CN II-XII intact. Absent: motor sensory deficit - Psychiatric Psychiatric exam: Present: normal affect, normal mood - Skin Skin exam: Present: warm, dry, intact, normal color. Absent: rash ED Course Vital Signs 03/17/20 03/17/20 21:25 21:28 Temperature 97.5 F L 98.1 F Pulse Rate 74 70 Respiratory 18 18 Rate Blood Pressure 132/83 127/78 [Right] O2 Sat by Pulse 96 97 Oximetry ED Medical Decision Making - Lab Data Result diagrams: 03/17/20 16:23 03/17/20 16:23 Lab Results 03/17/20 03/17/20 03/17/20 Range/Units 16:23 16:23 16:23 WBC 8.0 (4.5-11.0) K/mm3 RBC 5.26 H (3.65-5.03) M/mm3 Hgb 15.8 H (11.8-15.2) gm/dl Hct 44.3 (35.5-45.6) % MCV 84 (84-94) fl MCH 30 (28-32) pg MCHC 36 H (32-34) % RDW 14.3 (13.2-15.2) % Plt Count 176 (140-440) K/mm3 Lymph % (Auto) 19.0 (13.4-35.0) % [place] % (Auto) 5.4 (0.0-7.3) % Eos % (Auto) 2.3 (0.0-4.3) % Baso % (Auto) 1.0 (0.0-1.8) % Lymph # (Auto) 1.5 (1.2-5.4) K/mm3 [place] # (Auto) 0.4 (0.0-0.8) K/mm3 Eos # (Auto) 0.2 (0.0-0.4) K/mm3 Baso # (Auto) 0.1 (0.0-0.1) K/mm3 Seg Neutrophils % 72.3 H (40.0-70.0) % Seg Neutrophils # 5.8 (1.8-7.7) K/mm3 PT 13.1 (12.2-14.9) Sec. INR 0.97 (0.87-1.13) APTT 29.4 (24.2-36.6) Sec. Thrombin Time 14.1 L (15.1-19.6) Sec. Sodium 141 (137-145) mmol/L Potassium 4.0 (3.6-5.0) mmol/L Chloride 103.6 (98-107) mmol/L Carbon Dioxide 20 L (22-30) mmol/L Anion Gap 21 mmol/L BUN 11 (9-20) mg/dL Creatinine 0.5 L (0.8-1.3) mg/dL Estimated GFR > 60 ml/min BUN/Creatinine Ratio 22 % Glucose 125 H (75-100) mg/dL POC Glucose (70-105) Calcium 9.5 (8.4-10.2) mg/dL Total Bilirubin 1.70 H (0.1-1.2) mg/dL AST 29 (5-40) units/L ALT 67 H (7-56) units/L Alkaline Phosphatase 115 (35-129) units/L Total Creatine Kinase 86 (55-170) units/L CK-MB (CK-2) 1.4 (0.0-4.0) ng/mL CK-MB (CK-2) Rel Index 1.6 (0-4) Troponin T < 0.010 (0.00-0.029) ng/mL Total Protein 8.1 (6.3-8.2) g/dL Albumin 4.6 (3.9-5) g/dL Albumin/Globulin Ratio 1.3 % Urine Color (Yellow) Urine Turbidity (Clear) Urine pH (5.0-7.0) Ur Specific [place] (1.003-1.030) Urine Protein (Negative) mg/dL Urine Glucose (UA) (Negative) mg/dL Urine Ketones (Negative) mg/dL Urine Blood (Negative) Urine Nitrite (Negative) Urine Bilirubin (Negative) Urine Urobilinogen (<2.0) mg/dL Ur Leukocyte Esterase (Negative) Urine WBC (Auto) (0.0-6.0) /HPF Urine RBC (Auto) (0.0-6.0) /HPF Urine Mucus /HPF Plasma/Serum Alcohol (0-0.07) % Blood Type Antibody Screen 03/17/20 03/17/20 03/17/20 Range/Units 16:23 16:23 16:24 WBC (4.5-11.0) K/mm3 RBC (3.65-5.03) M/mm3 Hgb (11.8-15.2) gm/dl Hct (35.5-45.6) % MCV (84-94) fl MCH (28-32) pg MCHC (32-34) % RDW (13.2-15.2) % Plt Count (140-440) K/mm3 Lymph % (Auto) (13.4-35.0) % [place] % (Auto) (0.0-7.3) % Eos % (Auto) (0.0-4.3) % Baso % (Auto) (0.0-1.8) % Lymph # (Auto) (1.2-5.4) K/mm3 [place] # (Auto) (0.0-0.8) K/mm3 Eos # (Auto) (0.0-0.4) K/mm3 Baso # (Auto) (0.0-0.1) K/mm3 Seg Neutrophils % (40.0-70.0) % Seg Neutrophils # (1.8-7.7) K/mm3 PT (12.2-14.9) Sec. INR (0.87-1.13) APTT (24.2-36.6) Sec. Thrombin Time (15.1-19.6) Sec. Sodium (137-145) mmol/L Potassium (3.6-5.0) mmol/L Chloride (98-107) mmol/L Carbon Dioxide (22-30) mmol/L Anion Gap mmol/L BUN (9-20) mg/dL Creatinine (0.8-1.3) mg/dL Estimated GFR ml/min BUN/Creatinine Ratio % Glucose (75-100) mg/dL POC Glucose 108 H (70-105) Calcium (8.4-10.2) mg/dL Total Bilirubin (0.1-1.2) mg/dL AST (5-40) units/L ALT (7-56) units/L Alkaline Phosphatase (35-129) units/L Total Creatine Kinase (55-170) units/L CK-MB (CK-2) (0.0-4.0) ng/mL CK-MB (CK-2) Rel Index (0-4) Troponin T (0.00-0.029) ng/mL Total Protein (6.3-8.2) g/dL Albumin (3.9-5) g/dL Albumin/Globulin Ratio % Urine Color (Yellow) Urine Turbidity (Clear) Urine pH (5.0-7.0) Ur Specific [place] (1.003-1.030) Urine Protein (Negative) mg/dL Urine Glucose (UA) (Negative) mg/dL Urine Ketones (Negative) mg/dL Urine Blood (Negative) Urine Nitrite (Negative) Urine Bilirubin (Negative) Urine Urobilinogen (<2.0) mg/dL Ur Leukocyte Esterase (Negative) Urine WBC (Auto) (0.0-6.0) /HPF Urine RBC (Auto) (0.0-6.0) /HPF Urine Mucus /HPF Plasma/Serum Alcohol < 0.01 (0-0.07) % Blood Type O POSITIVE Antibody Screen Negative 03/17/20 Range/Units 22:00 WBC (4.5-11.0) K/mm3 RBC (3.65-5.03) M/mm3 Hgb (11.8-15.2) gm/dl Hct (35.5-45.6) % MCV (84-94) fl MCH (28-32) pg MCHC (32-34) % RDW (13.2-15.2) % Plt Count (140-440) K/mm3 Lymph % (Auto) (13.4-35.0) % [place] % (Auto) (0.0-7.3) % Eos % (Auto) (0.0-4.3) % Baso % (Auto) (0.0-1.8) % Lymph # (Auto) (1.2-5.4) K/mm3 [place] # (Auto) (0.0-0.8) K/mm3 Eos # (Auto) (0.0-0.4) K/mm3 Baso # (Auto) (0.0-0.1) K/mm3 Seg Neutrophils % (40.0-70.0) % Seg Neutrophils # (1.8-7.7) K/mm3 PT (12.2-14.9) Sec. INR (0.87-1.13) APTT (24.2-36.6) Sec. Thrombin Time (15.1-19.6) Sec. Sodium (137-145) mmol/L Potassium (3.6-5.0) mmol/L Chloride (98-107) mmol/L Carbon Dioxide (22-30) mmol/L Anion Gap mmol/L BUN (9-20) mg/dL Creatinine (0.8-1.3) mg/dL Estimated GFR ml/min BUN/Creatinine Ratio % Glucose (75-100) mg/dL POC Glucose (70-105) Calcium (8.4-10.2) mg/dL Total Bilirubin (0.1-1.2) mg/dL AST (5-40) units/L ALT (7-56) units/L Alkaline Phosphatase (35-129) units/L Total Creatine Kinase (55-170) units/L CK-MB (CK-2) (0.0-4.0) ng/mL CK-MB (CK-2) Rel Index (0-4) Troponin T (0.00-0.029) ng/mL Total Protein (6.3-8.2) g/dL Albumin (3.9-5) g/dL Albumin/Globulin Ratio % Urine Color Yellow (Yellow) Urine Turbidity Clear (Clear) Urine pH 5.0 (5.0-7.0) Ur Specific [place] 1.014 (1.003-1.030) Urine Protein <15 mg/dl (Negative) mg/dL Urine Glucose (UA) Neg (Negative) mg/dL Urine Ketones Neg (Negative) mg/dL Urine Blood Neg (Negative) Urine Nitrite Neg (Negative) Urine Bilirubin Neg (Negative) Urine Urobilinogen < 2.0 (<2.0) mg/dL Ur Leukocyte Esterase Neg (Negative) Urine WBC (Auto) 1.0 (0.0-6.0) /HPF Urine RBC (Auto) 2.0 (0.0-6.0) /HPF Urine Mucus Few /HPF Plasma/Serum Alcohol (0-0.07) % Blood Type Antibody Screen - Radiology Data Radiology results: report reviewed - Medical Decision Making Discussed plan of care with patient Critical care attestation.: If time is entered above; I have spent that time in minutes in the direct care of this critically ill patient, excluding procedure time. ED Disposition Clinical Impression: Facial pain, acute Disposition: DC-01 TO HOME OR SELFCARE Is pt being admited?: No Does the pt Need Aspirin: No Condition: Stable Additional Instructions: RETURN IF WORSE Referrals: PRIMARY CAREMD [Primary Care Provider] - 3-5 Days EZIO HERNADEZ MD [Staff Physician] - 3-5 Days Time of Disposition: 23:25
[2020-03-17 23:04] LABS: Bilirubin,Urine NEG (Negative); Blood,Urine NEG (Negative); Color,Urine Yellow (Yellow); Mucus,Urine FEW /HPF; Protein,Urine <15 mg/dL mg/dL (Negative); Urobilinogen,Urine < 2.0 mg/dL (<2.0)
[2020-03-17] MEDS ORDERED: CLOPIDOGREL 75 MG TAB PO ONE (23:42)
[2020-03-18 00:14] VITALS: BP 112/59
== END 2020-03-18 00:10 | disposition home or self-care (01) ==
LOC: ED 14:47
DX: R51.9 Headache, unspecified (principal); Z90.49 Acquired absence of other specified parts of digestive tract; Z86.73 Personal history of transient ischemic attack (TIA), and cerebral infarction without residual deficits
CPT/HCPCS: 36415; 70450; 80053; 80320; 81001; 82550; 82553; 82962; 84484; 85025; 85610; 85670; 85730; 86850; 86900; 86901; G0480

== ENCOUNTER 2021-01-27 05:06 | Emergency (ER) | payer SELFPAY ==
[2021-01-27 08:32] LABS: Bacteria,Urine 1+ /HPF (Negative); Bilirubin,Urine NEG (Negative); Blood,Urine NEG (Negative); Color,Urine Colorless (Yellow); Protein,Urine <15 mg/dL mg/dL (Negative); Urobilinogen,Urine < 2.0 mg/dL (<2.0)
[2021-01-27 09:12] LABS: RBC,Urine < 1.0 /HPF (0.0-6.0); WBC,Urine < 1.0 /HPF (0.0-6.0)
[2021-01-27 10:30] VITALS: BP 131/70
--- NOTE | 2021-01-27 13:32 | Emergency Department Report ---
ED Male HPI - General Chief complaint: Urogenital-Male Stated complaint: SEVERE PAIN IN MY PARTS Source: patient Mode of arrival: Ambulatory Limitations: No Limitations - History of Present Illness Initial comments: 55-year-old male with a past medical history of diabetes and BPH presented to the ER today with complaints of difficulty urinating, dysuria and lower abdominal discomfort. Patient states that this started gradually a couple days ago. Also reports some mild pain radiating down into his testicular area but no swelling or erythema. Denies any Hematuria, back pain, nausea, vomiting fever or chills. Of note: Patient arrived to the ER about 8 hours ago and when patient was seen in triage, patient had a Lambert catheter placed. Patient reports much improvemen t after Lambert catheter placed. MD Complaint: other (trouble urinating ) -: Gradual - Related Data Previous Rx's Medication Instructions Recorded Last Taken Type Aspirin [Aspirin BABY CHEW TAB] 81 mg PO DAILY #30 tab.chew 02/25/19 Unknown Rx Azithromycin [Zithromax Z-SHAUN] 250 mg PO DAILY #5 tab 02/25/19 Unknown Rx Clopidogrel [Plavix] 75 mg PO QDAY #30 tablet 03/17/20 Unknown Rx HYDROcodone/APAP 5-325 [[place] 1 each PO Q4HR PRN #12 tablet 01/27/21 Unknown Rx 5/325] Tamsulosin [Flomax] 0.4 mg PO QDAY #30 cap 01/27/21 Unknown Rx cephALEXin [Keflex] 500 mg PO Q8HR #30 cap 01/27/21 Unknown Rx Allergies Allergy/AdvReac Type Severity Reaction Status Date / Time No Known Allergies Allergy Verified 02/23/19 03:38 ED Review of Systems ROS: Stated complaint: SEVERE PAIN IN MY PARTS Other details as noted in HPI Comment: All other systems reviewed and negative Gastrointestinal: abdominal pain. denies: nausea, vomiting, diarrhea, constipation, hematemesis, melena, hematochezia Genitourinary: dysuria, other (Decreased urine output). denies: urgency, frequency, hematuria, discharge Musculoskeletal: denies: back pain, joint swelling, arthralgia Skin: denies: rash, lesions Neurological: denies: headache, weakness, paresthesias Psychiatric: denies: anxiety, depression, auditory hallucinations, visual hallucinations, homicidal thoughts, suicidal thoughts Hematological/Lymphatic: denies: easy bleeding, easy bruising, swollen glands ED Past Medical Hx - Past Medical History Hx CVA: Yes Additional medical history: Herpes, - Surgical History Hx Cholecystectomy: Yes - Social History Smoking Status: Never Smoker - Medications Home Medications: Home Medications Medication Instructions Recorded Confirmed Last Taken Type Aspirin [Aspirin BABY CHEW TAB] 81 mg PO DAILY #30 tab.chew 02/25/19 Unknown Rx Azithromycin [Zithromax Z-SHAUN] 250 mg PO DAILY #5 tab 02/25/19 Unknown Rx Clopidogrel [Plavix] 75 mg PO QDAY #30 tablet 03/17/20 Unknown Rx HYDROcodone/APAP 5-325 [[place] 1 each PO Q4HR PRN #12 tablet 01/27/21 Unknown Rx 5/325] Tamsulosin [Flomax] 0.4 mg PO QDAY #30 cap 01/27/21 Unknown Rx cephALEXin [Keflex] 500 mg PO Q8HR #30 cap 01/27/21 Unknown Rx ED Physical Exam - General General appearance: alert, in no apparent distress - Head Head exam: Present: atraumatic, normocephalic, normal inspection - Neck Neck exam: Present: normal inspection, full ROM - Respiratory Respiratory exam: Present: normal lung sounds bilaterally. Absent: respiratory distress, wheezes, rales, rhonchi - Cardiovascular Cardiovascular Exam: Present: regular rate, normal rhythm, normal heart sounds - GI/Abdominal GI/Abdominal exam: Present: soft. Absent: distended, tenderness, guarding, rebound - Neurological Exam Neurological exam: Present: alert, oriented X3, CN II-XII intact, normal gait - Psychiatric Psychiatric exam: Present: normal affect, normal mood - Skin Skin exam: Present: intact ED Course Vital Signs 01/27/21 10:28 Temperature 98.2 F Pulse Rate 74 Respiratory 20 Rate Blood Pressure 131/70 O2 Sat by Pulse 96 Oximetry ED Medical Decision Making - Medical Decision Making Patient was seen and evaluated together with Dr. Sonya Johnson. Patient will be discharged home with Lambert catheter in place and he'll be given a leg bag. He will also be started on antibiotics for UTI and patient will be given referral to local urologist for further evaluation and removal of his Lambert catheter. He'll also be sent home on Flomax. Patient currently not toxic or ill-appearing and not in any acute distress. He is neurologically intact and ambulatory in the ER. His vital signs are stable. Patient expressed understanding of instructions and agree with plan. Patient was stable at time of discharge. Critical care attestation.: If time is entered above; I have spent that time in minutes in the direct care of this critically ill patient, excluding procedure time. ED Disposition Clinical Impression: Urinary retention due to benign prostatic hyperplasia, Complicated UTI (urinary tract infection) Disposition: 01 HOME / SELF CARE / HOMELESS Is pt being admited?: No Does the pt Need Aspirin: No Condition: Stable Instructions: Benign Prostatic Hyperplasia, Urinary Tract Infection, Adult Additional Instructions: Take the flomax and the keflex as prescribed. I recommend keeping lambert catheter in until follow up with urologist. Return to ED if symptoms worsens or changes in anyway. Prescriptions: Tamsulosin [Flomax] 0.4 mg PO QDAY #30 cap cephALEXin [Keflex] 500 mg PO Q8HR #30 cap HYDROcodone/APAP 5-325 [[place] 5/325] 1 each PO Q4HR PRN #12 tablet PRN Reason: Pain Referrals: PAWEL BRAVO MD [Staff Physician] - 3-5 Days Time of Disposition: 13:33
== END 2021-01-27 14:05 | disposition home or self-care (01) ==
LOC: ED 05:06
DX: N40.1 Benign prostatic hyperplasia with lower urinary tract symptoms (principal); N39.0 Urinary tract infection, site not specified; E11.9 Type 2 diabetes mellitus without complications; Z90.49 Acquired absence of other specified parts of digestive tract; Z79.899 Other long term (current) drug therapy; Z86.73 Personal history of transient ischemic attack (TIA), and cerebral infarction without residual deficits
CPT/HCPCS: 81001

== ENCOUNTER 2021-10-28 19:05 | Emergency (ER) | payer SELFPAY ==
[2021-10-28 21:33] VITALS: BP 117/58
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
== END 2021-10-29 06:59 | disposition home or self-care (01) ==
LOC: ED 19:05
DX: R51.9 Headache, unspecified (principal); Z86.73 Personal history of transient ischemic attack (TIA), and cerebral infarction without residual deficits; Z90.49 Acquired absence of other specified parts of digestive tract; Z79.899 Other long term (current) drug therapy; V89.2XXA Person injured in unspecified motor-vehicle accident, traffic, initial encounter; Y93.89 Activity, other specified; Y92.89 Other specified places as the place of occurrence of the external cause; Y99.8 Other external cause status
CPT/HCPCS: 70450; 82962; 99283